=== PATIENT | male | born 1985 | race Caucasian/White ===

== ENCOUNTER 2018-08-25 23:26 | Emergency (ER) | payer SELFPAY ==
[~2018-08-25] VITALS: Ht 162.6 cm; Wt 159.1 kg
[~2018-08-25 23:26] MED LIST: AMOXICILLIN875 MG PO; NORCO 325 MG-51 TAB PO; PEN-VEE K500 MG PO
[2018-08-25 23:35] VITALS: BP 190/90; TEMP 98.1
[2018-08-26 03:00] VITALS: PULSE 80
== END 2018-08-26 03:26 | disposition home or self-care (01) ==
LOC: COL.ER 23:26
DX: H61.23 Impacted cerumen, bilateral (principal)

== ENCOUNTER 2018-12-26 07:51 | Emergency (ER) | payer SELFPAY ==
[~2018-12-26] VITALS: Ht 162.6 cm; Wt 169.7 kg
[2018-12-26 07:54] VITALS: BP 142/95
[2018-12-26] MEDS ORDERED: PREDNISONE20 MG PO (08:53)
[2018-12-26 09:25] VITALS: PULSE 100; TEMP 97.5
== END 2018-12-26 09:25 | disposition home or self-care (01) ==
LOC: COL.ER 07:51
DX: T78.49XA Other allergy, initial encounter (principal)
CPT/HCPCS: J0171; J1200; J7512

== ENCOUNTER 2019-01-30 09:28 | Emergency (ER) | payer SELFPAY ==
[~2019-01-30] VITALS: Ht 162.6 cm; Wt 168.6 kg
[~2019-01-30 09:28] MED LIST changes: +PREDNISONE20 MG PO
[2019-01-30 09:39] VITALS: BP 176/104; TEMP 98
[2019-01-30] MEDS ORDERED: NORCO 325 MG-7.1 TAB PO (10:10)
[2019-01-30] MEDS ORDERED: CLEOCIN HC150 MG/CAP PO (10:10)
[2019-01-30 10:30] VITALS: PULSE 81
== END 2019-01-30 10:37 | disposition home or self-care (01) ==
LOC: COL.ER 09:28
DX: K04.7 Periapical abscess without sinus (principal); F17.210 Nicotine dependence, cigarettes, uncomplicated
CPT/HCPCS: J0696; J1885